=== PATIENT | female | born 1995 | race Two or more races ===

== ENCOUNTER 2018-07-25 00:42 | Emergency (ER) | payer MEDICAID ==
[~2018-07-25] VITALS: Ht 157.5 cm; Wt 98.0 kg
[2018-07-25] MEDS ORDERED: NKM (00:52)
[2018-07-25 00:55] VITALS: BP 102/61
[2018-07-25] MEDS ORDERED: NAPROXEN500 M2 ORAL (01:12)
--- NOTE | 2018-07-25 01:13 | Emergency Room Report ---
History of Present Illness General Chief Complaint: Lower Back Pain or Injury Source: Patient Present Illness HPI Is a 23-year-old female with no past medical history. She presents with chief complaint of back pain. Onset for about a week now. Worse the last few days. 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 No trauma. Pain is localized to the right upper lumbar area. Pain is 7 out of 10. Worse with palpation or movement. Denies any fever or chills. Denies any hematuria or urinary complaint. She is currently on her menstruation. No other complaint. No incontinence of bowel or urine. No fever. Allergies: Coded Allergies: No Known Allergies (Unverified , 07/25/18) Patient History Past Medical History: none, see triage record, old chart reviewed Past Surgical History: none Pertinent Family History: none Social History: Denies: smoking Last Menstrual Period: 07/22/18 Now: No Immunizations: other Reviewed Nursing Documentation: PMH: Agreed; PSxH: Agreed Nursing Documentation-PM Past Medical History: No Stated History Review of Systems Eye: Denies: eye pain, blurred vision ENT: Denies: ear pain, nose congestion, throat swelling Respiratory: Denies: cough, shortness of breath Cardiovascular: Denies: chest pain, palpitations Gastrointestinal: Denies: abdominal pain, diarrhea, nausea, vomiting Musculoskeletal: Reports: back pain; Denies: joint pain Skin: Denies: rash Neurological: Denies: headache, numbness Endocrine: Denies: increased thirst, increased urine Hematologic/Lymphatic: Denies: easy bruising All Other Systems: negative except mentioned in HPI Physical Exam Vital Signs Date Time Temp Pulse Resp B/P (MAP) Pulse Ox O2 Delivery O2 Flow Rate FiO2 07/25/18 00:45 97.7 65 16 100/58 99 Room Air vitals normal Sp02 EP Interpretation: reviewed, normal General Appearance: well appearing, no apparent distress, alert Head: normocephalic, atraumatic Eyes: bilateral eye PERRL, bilateral eye EOMI ENT: hearing grossly normal, normal pharynx Neck: full range of motion, supple, no meningismus Respiratory: chest non-tender, lungs clear, normal breath sounds Cardiovascular #1: regular rate, rhythm, no murmur Gastrointestinal: normal bowel sounds, non tender, no mass, no organomegaly, no bruit, non-distended Musculoskeletal: back normal, gait/station normal, normal range of motion, tender - Tender to palpation over the upper lumbar right paraspinous muscle. No midline tenderness. Worse with movement. Neurologic: alert, oriented x3 Psychiatric: mood/affect normal Skin: warm/dry Medical Decision Making Diagnostic Impression: Primary Impression: Strain of lumbar paraspinal muscle Qualified Codes: S39.012A - Strain of muscle, fascia and tendon of lower back , initial encounter ER Course Patient presents with a lumbar strain. Most likely work related. No evidence of cauda equina syndrome, spinal epidural abscess or neoplastic process. She has no trauma to warrant x-ray or CT scan. No other red flags. Last Vital Signs Date Time Temp Pulse Resp B/P (MAP) Pulse Ox O2 Delivery O2 Flow Rate FiO2 07/25/18 00:45 97.7 65 16 100/58 99 Room Air Status: improved Disposition: HOME, SELF-CARE Condition: Stable Scripts Naproxen* (NAPROXEN*) 500 Mg Tablet 500 MG ORAL TWICE A WEEK, #30 TAB 0 Refills Prov: Sarkis Rutherford MD 07/25/18 Patient Instructions: Lumbosacral Strain Additional Instructions: No heavy lifting. Follow-up with your doctor in 7 days. Return if worse. Sarkis Rutherford MD Jul 25, 2018 01:13
[2018-07-25] MEDS ORDERED: Norco 5mg/325mg tab ORAL ONE (01:15)
[2018-07-25 01:18] VITALS: BP 102/61
== END 2018-07-25 01:18 | disposition home or self-care (01) ==
LOC: EMR 01:10
DX: S39.012A Strain of muscle, fascia and tendon of lower back, initial encounter (principal); X50.0XXA Overexertion from strenuous movement or load, initial encounter; Y92.9 Unspecified place or not applicable
CPT/HCPCS: 99282